=== PATIENT | male | born 1950 | race Caucasian/White ===

== ENCOUNTER 2019-09-05 11:58 | Emergency (ER) | payer BC ==
[~2019-09-05] VITALS: Ht 172.7 cm; Wt 90.7 kg
[~2019-09-05 11:58] MED LIST: ASPIRIN81 M2 PO; BACTRIM DS TAB1 EACH PO; CENTRUM SILVER1 EAC2 PO; KEFLEX500 MG PO; LIPOFLAVONOID1 EACH PO; MEDROLDOSEPACK PO; UNKNOWN MED
[2019-09-05 14:09] VITALS: BP 133/86
== END 2019-09-05 14:10 | disposition home or self-care (01) ==
LOC: M.ERS 11:58
DX: M25.461 Effusion, right knee (principal); M25.561 Pain in right knee

== ENCOUNTER → 2019-10-06 | Outpatient (CLI) | payer BC | LOC: M.MRI 16:43 | PROVIDERS: ATTEND Family Medicine | DX: S83.281A Other tear of lateral meniscus, current injury, right knee, initial encounter (principal); M25.461 Effusion, right knee; G89.29 Other chronic pain; X58.XXXA Exposure to other specified factors, initial encounter; Y93.89 Activity, other specified; Y92.89 Other specified places as the place of occurrence of the external cause; Y99.8 Other external cause status ==